=== PATIENT | male | born 1950 | race Caucasian/White ===

== ENCOUNTER 2016-08-27 06:38 | Day surgery (SDC) | payer MEDICARE, BC ==
[~2016-08-27 06:38] MED LIST: ASPIR 8181 M1 PO; CIALIS20 M1 PO; GLAUCOMA EYE DROP EACH EYE; GLUCOTROL5 M1 PO; IBUPROFEN400 M1 PO; IMURAN50 M1 PO; LISINOPRIL PO; LISINOPRIL-HCT1 EAC3 PO; MAGNESIUM; METFORMIN HCL850 M1 PO; NEXIUM40 M1 PO; ONCE DAILY1 EACH PO; POTASSIUM CHLO20 ME3 PO; TENORMIN50 M1 PO; VITAMIN D
== END 2016-08-27 08:36 ==
LOC: SRG 06:38 → SHSB 06:40 → ORW 07:24
PROC: 0HQ1XZZ Repair Face Skin, External Approach (ICD-10-PCS; principal; 2016-08-27)
PROC: 0HQCXZZ Repair Left Upper Arm Skin, External Approach (ICD-10-PCS; 2016-08-27)
PROC: 0HB1XZZ Excision of Face Skin, External Approach (ICD-10-PCS; 2016-08-27)
PROC: 0HBCXZZ Excision of Left Upper Arm Skin, External Approach (ICD-10-PCS; 2016-08-27)
DX: C44.319 Basal cell carcinoma of skin of other parts of face (principal); C44.619 Basal cell carcinoma of skin of left upper limb, including shoulder; I10 Essential (primary) hypertension; E11.9 Type 2 diabetes mellitus without complications; D23.5 Other benign neoplasm of skin of trunk; Z79.84 Long term (current) use of oral hypoglycemic drugs; Z79.899 Other long term (current) drug therapy; Z90.49 Acquired absence of other specified parts of digestive tract